=== PATIENT | female | born 1955 | race African-American/Black ===

== ENCOUNTER 2017-11-10 19:18 | Emergency (ER) | payer OTHER ==
[~2017-11-10] VITALS: Ht 172.7 cm; Wt 52.2 kg
[~2017-11-10 19:18] MED LIST: ACET-2030 PO; LEVO50TA8 PO
[2017-11-10 19:22] VITALS: BP 132/89
== END 2017-11-10 20:10 | disposition home or self-care (01) ==
LOC: ER 19:20
DX: H66.92 Otitis media, unspecified, left ear (principal); Z90.710 Acquired absence of both cervix and uterus; Z88.6 Allergy status to analgesic agent; Z88.8 Allergy status to other drugs, medicaments and biological substances
CPT/HCPCS: A4606; Z7610